=== PATIENT | male | born 1965 | race Caucasian/White ===

== ENCOUNTER 2016-09-30 16:22 | Inpatient (IN) | payer MEDICAID, OTHER ==
[2016-09-30] VITALS (8 sets, daily range): BP systolic 117–159; BP diastolic 74–90; PULSE 80–96; RESP 16–22; TEMP 98.3–99.5; O2SAT 95–100
[~2016-09-30] VITALS: Ht 180.3 cm; Wt 87.9 kg
[~2016-09-30 16:22] MED LIST: BACT800T5 PO; CLIN1CAP5 PO; DICL75TA PO; NEUR600T PO; SERO400T PO
[2016-09-30] MEDS ORDERED: MORPHINE SULFATE 4 MG/ML INJ IV PUSH ONE (17:00)
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
[2016-09-30 17:16] LABS: AUTOMATED NEUTROPHIL # 6.8 TH/MM3 (1.8-7.7); BASOPHIL # 0.4 TH/MM3 (0-0.2); BASOPHIL % 4.2 % (0.0-2.0); EOSINOPHIL % 0.1 % (0.0-4.0); HEMATOCRIT 50.9 % (39.0-51.0); HEMO FLAGS DIFF FINAL; LYMPH % 11.9 % (9.0-44.0); LYMPHOCYTE # 1.1 TH/MM3 (1.0-4.8); MEAN CELL VOLUME 93.9 FL (80.0-100.0); MEAN CORPUSCULAR HEMOGLOBIN 31.7 PG (27.0-34.0); MEAN CORPUSCULAR HGB CONC 33.8 % (32.0-36.0); MONO % 9.7 % (0.0-8.0); NEUT % 74.1 % (16.0-70.0); PLATELET COUNT 196 TH/MM3 (150-450); RED BLOOD COUNT 5.42 MIL/MM3 (4.50-5.90); RED CELL DISTRIBUTION WIDTH 12.7 % (11.6-17.2); WHITE BLOOD COUNT 9.2 TH/MM3 (4.0-11.0)
[2016-09-30 17:23] LABS: CHLORIDE 105 MEQ/L (98-107); POTASSIUM 3.7 MEQ/L (3.5-5.1); SODIUM (NA) 141 MEQ/L (136-145)
[2016-09-30 17:28] LABS: ANION GAP 9 MEQ/L (5-15); APTT (PATIENT) 26.1 SEC (24.3-30.1); BICARBONATE 26.8 MEQ/L (21.0-32.0); BLOOD UREA NITROGEN 3 MG/DL (7-18); PROTHROMBIN TIME - PATIENT 11.5 SEC (9.8-11.6)
[2016-09-30 17:31] LABS: ALT (GPT) 39 U/L (12-78); AST (GOT) 17 U/L (15-37); GLOMERULAR FILTRATION RATE 79 ML/MIN (>89)
[2016-09-30 17:33] LABS: TOTAL BILIRUBIN ADULT 1.1 MG/DL (0.2-1.0)
[2016-09-30 17:34] LABS: ALKALINE PHOSPHATASE 88 U/L (45-117)
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
[2016-09-30] MEDS ORDERED: MORPHINE SULFATE 8 MG/ML INJ IV PUSH ONE (18:00)
[2016-09-30] MEDS ORDERED: IOHEXOL 300 MG/ML 100 ML BTL (for Rad CT) IV ONE (18:51)
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
[2016-09-30] MEDS ORDERED: HYDROmorphone HCL PF 1 MG/ML VIAL IV PUSH ONE (20:00)
[2016-09-30] MEDS ORDERED: SODIUM CHLORIDE 0.9% FLUSH 5 ML FLUSH IV FLUSH PRN (20:45)
[2016-09-30] MEDS ORDERED: ONDANSETRON HCL 4 MG/2 ML VIAL IV PRN (20:45)
[2016-09-30] MEDS ORDERED: CHLORHEXIDINE GLUCONATE 2 % 1 PACK (2 CLOTHS) TOP PRN (20:45)
[2016-09-30] MEDS ORDERED: MISCELLANEOUS NURSING INFORMATION XX SCH (20:45)
[2016-09-30] MEDS ORDERED: oxyCODONE/ACETAMINOPHEN 5 MG/325 MG TAB PO PRN ×2 (21:00)
[2016-09-30] MEDS ORDERED: ENOXAPARIN SODIUM 30 MG/0.3 ML SYRINGE SQ SCH (21:00)
[2016-09-30] MEDS: QUEtiapine FUMARATE 300 MG TAB PO SCH ×2 (21:00→23:27)
--- NOTE | 2016-09-30 21:02 | HHI.HP ---
History of Present Illness Primary Care Physician No Primary Care Physician Admission Diagnosis Rib Fractures/Pneumothorax Diagnoses: History of Present Illness A 51-year-old male involved than [facility] [place]. Patient initially was seen and worked up a port Connel[place]. It was seen that he has subcutaneous emphysema ,multiple broken ribs on the right side and a small pneumothorax. He was transferred here for trauma admission. On exam patient is mildly tachypneic requires 6 l of supplemental oxygen to keep saturations around 95% He is a smoker. Complains of mainly pain on his right thorax area on deep breathing. Review of Systems Constitutional: DENIES: Diaphoretic episodes, Fatigue, Fever, Weight gain, Weight loss, Chills, Dizziness, Change in appetite, Night Sweats Endocrine: DENIES: Heat/cold intolerance, Polydipsia, Polyuria, Polyphagia Eyes: DENIES: Blurred vision, Diplopia, Eye inflammation, Eye pain, Vision loss , Photosensitivity, Double Vision Ears, nose, mouth, throat: DENIES: Tinnitus, Hearing loss, Vertigo, Nasal discharge, Oral lesions, Throat pain, Hoarseness, Ear Pain, Running Nose, Epistaxis, Sinus Pain, Toothache, Odynophagia Respiratory: COMPLAINS OF: Shortness of breath, DENIES: Apneas, Cough, Snoring , Wheezing, Hemoptysis, Sputum production Cardiovascular: COMPLAINS OF: Chest pain, DENIES: Palpitations, Syncope, Dyspnea on Exertion, PND, Lower Extremity Edema, Orthopnea, Claudication Gastrointestinal: DENIES: Abdominal pain, Black stools, Bloody stools, Constipation, Diarrhea, Nausea, Vomiting, Difficulty Swallowing, Anorexia Genitourinary: DENIES: Sexual dysfunction, Urinary frequency, Urinary incontinence, Urgency, Hematuria, Dysuria, Nocturia, Penile Discharge, Testicular Pain, Testicular Swelling Musculoskeletal: DENIES: Joint pain, Muscle aches, Stiffness, Joint Swelling, Back pain, Neck pain Integumentary: DENIES: Abnormal pigmentation, Nail changes, Pruritus, Rash Hematologic/lymphatic: DENIES: Bruising, Lymphadenopathy Immunologic/allergic: DENIES: Eczema, Urticaria Neurologic: DENIES: Abnormal gait, Headache, Localized weakness, Paresthesias, Seizures, Speech Problems, Tremor, Poor Balance Psychiatric: DENIES: Anxiety, Confusion, Mood changes, Depression, Hallucinations, Agitation, Suicidal Ideation, Homicidal Ideation, Delusions Past Family Social History Allergies: Coded Allergies: Shellfish (Verified Allergy, Unknown, 09/30/16) Past Medical History Bipolar disease Past Surgical History Ankle surgery Reported Medications Seroquel Neurontin Active Ordered Medications IV pain meds Family History nobe Social History positive for smoking Physical Exam Vital Signs Vital Signs Date Time Temp Pulse Resp B/P Pulse Ox O2 Delivery O2 Flow Rate FiO2 09/30/16 19:53 22 95 Nasal Cannula 5 09/30/16 19:48 99.5 96 22 140/75 96 Non-Rebreather 15 09/30/16 19:48 22 97 Nasal Cannula 5 09/30/16 19:05 90 18 100 Non-Rebreather 15 09/30/16 18:57 91 18 159/90 100 Non-Rebreather 15 09/30/16 18:23 80 16 141/87 98 Non-Rebreather 15 09/30/16 18:23 80 16 98 Non-Rebreather 15 09/30/16 17:18 97 16 95 Room Air 09/30/16 16:40 101 16 93 Room Air 09/30/16 16:27 98.3 96 18 117/84 96 Physical Exam GENERAL: This is a well-nourished, well-developed patient, in no apparent distress. SKIN: No rashes, ecchymoses or lesions. Cool and dry. HEAD: Atraumatic. Normocephalic. No temporal or scalp tenderness. EYES: Pupils equal round and reactive. Extraocular motions intact. No scleral icterus. No injection or drainage. ENT: Nose without bleeding, purulent drainage or septal hematoma. Throat without erythema, tonsillar hypertrophy or exudate. Uvula midline. Airway patent. NECK: Trachea midline. No JVD or lymphadenopathy. Supple, nontender, no meningeal signs. CARDIOVASCULAR: Regular rate and rhythm without murmurs, gallops, or rubs. RESPIRATORY: Clear to auscultation left, crackles right,sq emphysema GASTROINTESTINAL: Abdomen soft, non-tender, nondistended. No hepato-splenomegaly , or palpable masses. No guarding. MUSCULOSKELETAL: Extremities without clubbing, cyanosis, or edema. No joint tenderness, effusion, or edema noted. No calf tenderness. Negative Homans sign bilaterally. NEUROLOGICAL: Awake and alert. Cranial nerves II through XII intact. Motor and sensory grossly within normal limits. Five out of 5 muscle strength in all muscle groups. Normal speech. Laboratory Laboratory Tests Test 09/30/16 17:00 White Blood Count 9.2 Red Blood Count 5.42 Hemoglobin 17.2 Hematocrit 50.9 Mean Corpuscular Volume 93.9 Mean Corpuscular Hemoglobin 31.7 Mean Corpuscular Hemoglobin 33.8 Concent Red Cell Distribution Width 12.7 Platelet Count 196 Mean Platelet Volume 7.9 Neutrophils (%) (Auto) 74.1 Lymphocytes (%) (Auto) 11.9 Monocytes (%) (Auto) 9.7 Eosinophils (%) (Auto) 0.1 Basophils (%) (Auto) 4.2 Neutrophils # (Auto) 6.8 Lymphocytes # (Auto) 1.1 Monocytes # (Auto) 0.9 Eosinophils # (Auto) 0.0 Basophils # (Auto) 0.4 CBC Comment DIFF FINAL Differential Comment Prothrombin Time 11.5 Prothromb Time International 1.0 Ratio Activated Partial 26.1 Thromboplast Time Sodium Level 141 Potassium Level 3.7 Chloride Level 105 Carbon Dioxide Level 26.8 Anion Gap 9 Blood Urea Nitrogen 3 Creatinine 1.00 Estimat Glomerular Filtration 79 Rate Random Glucose 122 Calcium Level 8.7 Total Bilirubin 1.1 Aspartate Amino Transf 17 (AST/SGOT) Alanine Aminotransferase 39 (ALT/SGPT) Alkaline Phosphatase 88 Troponin I LESS THAN 0.02 Total Protein 7.6 Albumin 3.6 Result Diagram: 09/30/16 1700 09/30/[address] abdomen and pelvis negative for injury CT of the chest small pneumothorax subcutaneous emphysema, multiple rib fx Assessment and Plan Assessment and Plan Fractures of multiple ribs with pneumothorax on the right side, small hemothorax ICU admission pain control pulmonary toilet cxr in am supplemental oxygen Laxmi Millan MD Sep 30, 2016 21:02
[2016-09-30] MEDS ORDERED: PILL SPLITTER OTHER PRN (21:15)
[2016-09-30] MEDS: RESP: IPRATROPIUM 0.5 MG/2.5 ML NEB INH SCH (21:18)
[2016-09-30] MEDS: CYCLOBENZAPRINE HCL 10 MG TAB PO SCH (21:28)
[2016-09-30] MEDS: DOCUSATE SODIUM 100 MG CAP PO SCH (21:28)
[2016-09-30] MEDS: SODIUM CHLORIDE 0.9% FLUSH 5 ML FLUSH IV FLUSH SCH (21:29)
[2016-09-30] MEDS: KETOROLAC TROMETHAMINE 30 MG/ML (IVP) VIAL IV PUSH SCH (21:29)
[2016-09-30] MEDS: SODIUM CHLOR 0.9% 1000 ML INJ 1,000 ML IV SCH (21:30)
[2016-09-30] MEDS: HYDROmorphone HCL PF 1 MG/ML VIAL IV PUSH PRN (23:40)
[2016-10-01] VITALS (8 sets, daily range): BP systolic 123–133; BP diastolic 79–81; PULSE 76–93; RESP 20–24; TEMP 98.3–100.2; O2SAT 95–98
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
[2016-10-01] MEDS ORDERED: CHLORHEXIDINE GLUCONATE 2 % 1 PACK (2 CLOTHS) TOP SCH (04:00)
[2016-10-01] MEDS: RESP: IPRATROPIUM 0.5 MG/2.5 ML NEB INH SCH ×2 (04:05→09:18)
[2016-10-01] MEDS: HYDROmorphone HCL PF 1 MG/ML VIAL IV PUSH PRN ×3 (04:25→13:04)
[2016-10-01] MEDS: KETOROLAC TROMETHAMINE 30 MG/ML (IVP) VIAL IV PUSH SCH ×2 (04:25→09:25)
[2016-10-01 04:34] LABS: AUTOMATED NEUTROPHIL # 5.8 TH/MM3 (1.8-7.7); BASOPHIL % 0.3 % (0.0-2.0); EOSINOPHIL % 0.5 % (0.0-4.0); HEMATOCRIT 45.2 % (39.0-51.0); HEMO FLAGS DIFF FINAL; LYMPH % 14.4 % (9.0-44.0); LYMPHOCYTE # 1.1 TH/MM3 (1.0-4.8); MEAN CELL VOLUME 93.7 FL (80.0-100.0); MEAN CORPUSCULAR HEMOGLOBIN 32.1 PG (27.0-34.0); MEAN CORPUSCULAR HGB CONC 34.3 % (32.0-36.0); MONO % 11.6 % (0.0-8.0); NEUT % 73.2 % (16.0-70.0); PLATELET COUNT 157 TH/MM3 (150-450); RED BLOOD COUNT 4.82 MIL/MM3 (4.50-5.90); RED CELL DISTRIBUTION WIDTH 13.5 % (11.6-17.2); WHITE BLOOD COUNT 7.9 TH/MM3 (4.0-11.0)
[2016-10-01 04:57] LABS: BICARBONATE 30.2 MEQ/L (21.0-32.0)
[2016-10-01] MEDS: CYCLOBENZAPRINE HCL 10 MG TAB PO SCH ×2 (06:16→13:04)
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
[2016-10-01] MEDS ORDERED: FAMOTIDINE 20 MG TAB PO SCH (09:00)
[2016-10-01] MEDS: SODIUM CHLOR 0.9% 1000 ML INJ 1,000 ML IV SCH (09:24)
[2016-10-01] MEDS: DOCUSATE SODIUM 100 MG CAP PO SCH (09:25)
[2016-10-01] MEDS: GABAPENTIN 300 MG CAP PO SCH ×2 (09:26→12:21)
[2016-10-01] MEDS: SODIUM CHLORIDE 0.9% FLUSH 5 ML FLUSH IV FLUSH SCH (09:28)
[2016-10-01] MEDS ORDERED: OXYC1TAB63 PO (12:20)
[2016-10-01] MEDS ORDERED: CYCL1TAB29 PO (12:22)
[2016-10-01] MEDS ORDERED: WALKER WHEELS/F1 MIS (12:39)
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
--- NOTE | 2016-10-01 17:48 | EKG ---
Date Performed: 09/30/2016 Time Performed: 17:00:34 PTAGE: 51 years EKG: Sinus rhythm Left axis deviation rSr'(V1) - probable normal variant Inferior infarct - age undetermined Abnormal ECG NO PREVIOUS TRACING DOCTOR: Cher Mcmillan Interpretating Date/Time 10/01/2016 17:47:12
== END 2016-10-01 14:08 | disposition home or self-care (01) | DRG 200 ==
LOC: PHED 16:22 → NEDA 20:13 → N03B 21:48
PROVIDERS: ADMIT Surgery Trauma Surgery; ATTEND Surgery Trauma Surgery
DX: S27.2XXA Traumatic hemopneumothorax, initial encounter (principal); S22.41XA Multiple fractures of ribs, right side, initial encounter for closed fracture; F31.9 Bipolar disorder, unspecified; F17.210 Nicotine dependence, cigarettes, uncomplicated; M25.561 Pain in right knee; R06.82 Tachypnea, not elsewhere classified; T79.7XXA Traumatic subcutaneous emphysema, initial encounter; V29.88XA Motorcycle rider (driver) (passenger) injured in other specified transport accidents, initial encounter
CPT/HCPCS: 71010; 71260; 73564; 74177; 80048; 80053; 84484; 85025; 85610; 85730; 87641; 93005; 94640; 94664; 96374; 96375; 96376; J1170; J1650; J1885; J2270; J7030; J7644; Q9967